=== PATIENT | male | born 1940 | race Caucasian/White ===

== ENCOUNTER 2019-10-15 13:59 | Observation (INO) | payer MEDICARE ==
[2019-10-15] MEDS ORDERED: Ondansetron PF 4 MG/2 ML Vial IVP PRN (15:50)
[2019-10-15] MEDS ORDERED: Dextrose 50% Abboject 50 ML SYRINGE SLOW IVP PRN (15:53)
[2019-10-15] MEDS ORDERED: Dextrose 5% in Water 1,000 ML IV PRN (15:53)
[2019-10-15] MEDS ORDERED: HumaLOG 300 UNITS/3 ML VIAL SC PRN (15:53)
--- NOTE | 2019-10-15 16:37 | PDOC.HHP ---
Hospitalist HPI - History of Present Illness left sided weakness, word finding History of Present Illness: This is a 79 year old male with a past medical history of hypertension, diabetes , who presented to the emergency room due to trouble with word finding and transient weakness in lower extremities. The patient states that yesterday his left leg and his left arm started having parasthesias. As he walked, it got worst and both of his legs became numb. He called his daughter yesterday and she couldn't understand anything he was saying and thought his speech was slurred. His parasthesias lasted until he went to sleep at night and when he woke up this morning it was better. His dysarthria was better today as well . but he has been having difficulty with word finding, so he called his primary care doctor who advised him to go to [facility]. The patient denied headache, changes in vision, hearing, nausea, vomiting, or weakness in his legs. He did not feel dizzy and he did not fall. HE does report history of diabetic neuropathy but states the parasthesias that he had were much worst. Upon arrival to [facility], the patient's systolic blood pressure was 160. He had a CT head which showed no acute disease. EKG showed right bundle branch block. Chest X ray was normal. He had a lactic acid of 3.4. UA was normal. The patient was given 1L normal saline. He does take aspirin 325 mg at home and took his medications this morning. He was transferred for TIA workup. Of note family member has mentioned he was recently diagnosed with Alzheimer's disease. Hospitalist ROS - Review of Systems Constitutional: denies: fever, chills Eyes: denies: pain, vision change ENT: denies: ear discharge Respiratory: denies: cough, dry, shortness of breath Cardiovascular: denies: chest pain, palpitations, orthopnea Gastrointestinal: denies: nausea, vomiting, abdominal pain, diarrhea Genitourinary: denies: dysuria, frequency Musculoskeletal: denies: neck pain, shoulder pain, foot pain Skin: denies: rash, lesions Neurological: denies: weakness, numbness Hospitalist History - Past Medical History Other Medical History: CAD s/p PCI DIabetes type II Hypertension Early Alzheimer's disease - Past Surgical History Past Surgical History: reports: Other Surgical History: Heart stent in 1999 Knee replacement - Family History Other Family History: No medical problems in the family - Social History Smoking Status: Former smoker (Quit in 1999 when his stent was placed. Smoked for 30 year s) Alcohol: reports: None Drugs: reports: none Living Situation: With Family - Exam General Appearance: NAD, awake alert Eye: PERRL, anicteric sclera ENT: normocephalic atraumatic, no oropharyngeal lesions Neck: supple, no JVD Heart: RRR, no murmur, no gallops, no rubs Respiratory: CTAB, no wheezes, no rales, no ronchi Gastrointestinal: soft, non-tender, non-distended, normal bowel sounds Extremities: no cyanosis, no clubbing, no edema Skin: normal turgor, no lesions, no rashes Neurological: cranial nerve grossly intact, normal sensation to touch, no focal deficits, no new deficit Neurological - other findings: left finger to nose dysmetria. 5/5 strength UE and LE Musculoskeletal: normal tone, normal strength, no muscle wasting Psychiatric: normal affect, normal behavior, A&O x 3 Hospitalist Results - EKG Interpretation EKG: right bundle branch block Hospitalist H&P A/P - Plan Plan: This is a 79 year old male with diabetes ,hypertension, CAD s/p stent who presented with transient left sided weakness that progressed to bilateral weakness, transient slurred speech that has resolved, but with persistent word finding difficulties TIA - will continue aspirin - resume statin - check MRI of brain, carotid doppler. Consider neuro consult in the am - check lipid panel in the am - check another troponin Lactic acidosis - will repeat. S/p 1L normal saline Macrocytic anemia - Hb 12.6, will check B12/folate in the am Type II diabetes - insulin sliding scale - hold metformin Hypertension - hold outpatient meds for now Code status: full code. Per patient if terminal illness then DNR/DNi DVT prophylaxis: heparin
[2019-10-15 16:39] VITALS: BMI 29.2
--- NOTE | 2019-10-15 17:24 | PDOC.FMACP ---
Advance Care Planning - Note Participants: patient Summary: Advanced Care Planning was discussed. The diagnosis, prognosis and goals of care were discussed. Appropriate forms and documentation to accomplish the goals of care were discussed. All questions were answered. The Palliative Care Team will be engaged to assist with completion of any outstanding forms that are needed. Discussed that patient wants to be full code unless he has terminal illness. Medical power of attorney general is daughter in law Margo
[2019-10-15] MEDS ORDERED: Atorvastatin Calcium 20 MG TAB PO SCH (21:00)
[2019-10-15] MEDS ORDERED: Nortriptyline HCl 25 MG CAP PO SCH (21:00)
[2019-10-15] MEDS ORDERED: Tamsulosin HCl 0.4 MG CAP PO SCH (21:00)
[2019-10-15] MEDS: Famotidine/PF 20 mg/2ml Vial SLOW IVP SCH (21:11)
[2019-10-15] MEDS: Gabapentin 400 MG CAP PO SCH (21:12)
[2019-10-15] MEDS: Heparin 5,000 UNITS/ML VIAL SC SCH (21:12)
--- NOTE | 2019-10-15 21:26 | ULT ---
ULTRASOUND CAROTID DOPPLER STANDARD: 10/15/19 HISTORY: Transient ischemic attack. COMPARISON: None. FINDINGS: Real time morris scale, color Doppler and spectral analysis of the extracranial carotid and vertebral a rteries was performed. Mild atherosclerotic plaque both carotid bulbs and proximal internal carotid arteries. Antegrade flow to both vertebral arteries. No elevated peak systolic velocities within the internal carotid arteries. IMPRESSION: No hemodynamically significant stenosis. POS: HOME
[2019-10-16] MEDS ORDERED: Levothyroxine Sodium 125 MCG TAB PO SCH ×2 (06:00)
[2019-10-16] MEDS: Gabapentin 400 MG CAP PO SCH ×2 (08:28→15:29)
[2019-10-16] MEDS: Famotidine/PF 20 mg/2ml Vial SLOW IVP SCH (08:28)
[2019-10-16] MEDS: Heparin 5,000 UNITS/ML VIAL SC SCH ×2 (08:29→15:30)
[2019-10-16] MEDS ORDERED: Lisinopril 5 MG TAB PO SCH (09:00)
[2019-10-16] MEDS ORDERED: Atenolol 25 MG TAB PO SCH (09:00)
[2019-10-16] MEDS ORDERED: Aspirin Chewable 81 MG TAB PO SCH (09:00)
--- NOTE | 2019-10-16 10:25 | MRI ---
BRAIN MRI WITHOUT IV CONTRAST: History: Left sided dysmetria, word finding difficulty. Comparison: Brain CT 10-15-2019 FINDINGS: There are some scattered chronic white matter ischemic changes noted bilaterally. Minimal motion serina fact lowers the sensitivity of the study. No focal mass or midline shift. No evidence for acute infar ct. Expected flow voids are present. No acute hemorrhage. IMPRESSION: Mild chronic white matter ischemic change. No mass or hemorrhage. No evidence for acute infarct. Mild sinus mucosal disease. No mass or bleed or other acute process. POS: [facility]
[2019-10-16 12:06] VITALS: BP 129/67; TEMP 98
[2019-10-16 12:51] LABS: #Eosinphils 0.1 thou/uL (0.0-0.7); #Lymphocytes 1.7 thou/uL (1.20-3.40); #Monocytes 0.9 thou/uL (0.11-0.59); %Basophils 0.2 % (0.0-1.0); %Eosinophils 0.9 % (0.0-10.0); %Lymphocytes 19.7 % (21.0-51.0); %Monocytes 10.3 % (0.0-10.0); %Neutrophils 68.9 % (42.0-75.0); Hemoglobin 13.4 g/dL (14.0-18.0); Mean Corpuscular HGB CONC 32.8 g/dL (32.0-36.0); Mean Corpuscular Hemoglobin 30.9 pg (27.0-31.0); Mean Corpuscular Volume 94.3 fL (78.0-98.0); Mean Platelet Volume 7.8 fL (7.4-10.4); Platelet Count 241 thou/uL (130-400); RBC Distribution Width 11.7 % (11.5-14.5); Red Blood Cell (RBC) Count 4.36 mill/uL (4.70-6.10); White Blood Cell (WBC) Count 8.7 thou/uL (4.8-10.8)
[2019-10-16 13:04] LABS: Anion Gap 15 mmol/L (10-20); BUN (Urea Nitrogen) 13 mg/dL (8.4-25.7); Calc. Creatinine Clearance 69 mL/min (70-130); Calcium 9.1 mg/dL (7.8-10.44); Carbon Dioxide 22 mmol/L (23-31); Chloride 105 mmol/L (98-107); Estimated GFR-MDRD 61; Glucose 167 mg/dL (83-110); Potassium 4.8 mmol/L (3.5-5.1); Sodium 137 mmol/L (136-145)
[2019-10-16] MEDS ORDERED: Finasteride 5 MG TAB PO SCH (21:00)
--- NOTE | 2019-10-16 21:07 | DIS ---
DATE OF ADMISSION: 10/15/2019 DATE OF DISCHARGE: 10/16/2019 REASON FOR HOSPITALIZATION: Left-sided weakness and difficulty with word finding. PROCEDURES PERFORMED AND TREATMENTS RENDERED: The patient was admitted to medical unit with telemetry, stroke unit for close management. Please see full history and physical from Dr. Shaw for full details. The patient was admitted on 10/15/2019 with left-sided upper and lower extremity motor deficits and difficulty with word finding. The patient was concerned for TIA workup, low NIH score, dictated that he was not a candidate for tPA on arrival. The patient with past medical history of hypertension, diabetes, hyperlipidemia, and osteoarthritis. The patient had all appropriate workup for TIA, which was found to be overly benign. The patient had a MRI of the brain, please see full workup for details: The patient with mild chronic white matter ischemic changes. No mass or hemorrhage. No evidence of acute infarct: Mild sinusitis. Mucosal disease. No mass or bleed or other acute process. The patient with echocardiogram, please see full report for details. The patient with a preserved ejection fraction of 50% to 55% and impaired relaxation compatible with diastolic dysfunction, though he did not have an acute exacerbation and no heart failure was present. The patient having no shortness of breath. He is breathing well on room air. The patient having no fever. The patient having a normal WBC count and his metabolic workup was benign. The patient had an ultrasound of the carotid arteries, please see full report for details. The patient having no hemodynamically significant stenosis bilaterally. The patient was evaluated by Physical Therapy and Occupational Therapy, who recommended him safe for discharge home with family support and he was found to be independent. The patient recommended safe for discharge on 10/16/2019 after I evaluated him. When I evaluated the patient on 10/16/2019, he has no residual motor deficits and his word-finding and cognition are intact. The patient diagnosed with transient ischemic attack and a stroke regimen was recommended. The patient was recommended safe for discharge with close followup in the outpatient setting. CONDITION ON DISCHARGE: Stable. SPECIFIC INSTRUCTIONS FOR THE PATIENT/FAMILY: 1. The patient is recommended to follow up with primary care physician in the next 5 to 7 days. 2. The patient is recommended to follow up with all other specialists as directed. 3. The patient is recommended to take all medications as directed, the patient recommended to return to acute care hospital immediately if he is unable to take these medications as directed. 4. The patient is recommended to return to acute care hospital immediately if signs or symptoms return, worsen, or any other new symptoms occur. TIME SPENT: Greater than 36 minutes spent coordinating care and discharge process for this patient. Job ID: [id number]
== END 2019-10-16 16:48 | disposition home or self-care (01) ==
LOC: 2SE 14:02
PROVIDERS: ADMIT Internal Medicine; ATTEND Internal Medicine
DX: G45.9 Transient cerebral ischemic attack, unspecified (principal); I10 Essential (primary) hypertension; E11.10 Type 2 diabetes mellitus with ketoacidosis without coma; G30.9 Alzheimer's disease, unspecified; F02.80 Dementia in other diseases classified elsewhere, unspecified severity, without behavioral disturbance, psychotic disturbance, mood disturbance, and anxiety; I25.10 Atherosclerotic heart disease of native coronary artery without angina pectoris; G30.0 Alzheimer's disease with early onset; I45.10 Unspecified right bundle-branch block; D53.9 Nutritional anemia, unspecified; E78.5 Hyperlipidemia, unspecified; M19.90 Unspecified osteoarthritis, unspecified site; Z79.82 Long term (current) use of aspirin; Z79.84 Long term (current) use of oral hypoglycemic drugs; Z79.899 Other long term (current) drug therapy; Z87.891 Personal history of nicotine dependence; Z95.5 Presence of coronary angioplasty implant and graft
CPT/HCPCS: 70551; 80048; 82962 ×2; 85025; 93306; 93880; 96372 ×2; 96374; 96376; 97139 ×4; G0378 ×2; J1644 ×2; 36415; 36416; S0028

== ENCOUNTER 2019-12-13 18:32 | Inpatient (IN) | payer MEDICARE ==
[2019-12-13 18:54] VITALS: BMI 36.2
[2019-12-13 20:42] LABS: Anion Gap 11 mmol/L (10-20); BUN (Urea Nitrogen) 37 mg/dL (8.4-25.7); Calc. Creatinine Clearance 35 mL/min (70-130); Carbon Dioxide 24 mmol/L (23-31); Chloride 108 mmol/L (98-107); Estimated GFR-MDRD 32; Glucose 123 mg/dL (83-110); Sodium 138 mmol/L (136-145)
[2019-12-13] MEDS ORDERED: Calcium Carbonate 500 MG ChewTAB PO PRN (20:47)
[2019-12-13] MEDS ORDERED: Acetaminophen 325 MG TAB PO PRN (20:47)
[2019-12-13] MEDS ORDERED: Ondansetron PF 4 MG/2 ML Vial IVP PRN (20:47)
[2019-12-13] MEDS ORDERED: Ondansetron ODT 4 MG TAB PO PRN (20:47)
[2019-12-13] MEDS ORDERED: Insulin Regular 300 UNITS/3 ML VIAL SC PRN ×2 (20:52)
[2019-12-13] MEDS ORDERED: Dextrose 5% in Water 1,000 ML IV PRN (20:52)
[2019-12-13] MEDS ORDERED: Dextrose 50% Abboject 50 ML SYRINGE SLOW IVP PRN (20:52)
[2019-12-13] MEDS: Heparin 5,000 UNITS/ML VIAL SC SCH (22:01)
[2019-12-13] MEDS: Famotidine 20 MG TAB PO SCH (22:01)
[2019-12-13] MEDS: Senokot S 8.6-50 MG TAB PO SCH (22:01)
[2019-12-13] MEDS: Sodium Chloride 0.45% 1,000 ML IV SCH (22:02)
--- NOTE | 2019-12-14 00:56 | HP ---
The patient was seen and examined on 13 December 2019. Please note that the patient has 2 different medical record numbers. For previous record, please refer to . CHIEF COMPLAINT: Generalized weakness. HISTORY OF PRESENT ILLNESS: The patient is a 79-year-old male with hypertension, diabetes mellitus type 2, and coronary artery disease, followed by Dr. Forman, presented to [facility] from his PCP's office due to abdominal discomfort. The abdominal discomfort has been ongoing for last 1 to 2 days. It is in the suprapubic and the left lower quadrant. It is localized without any radiation. It is moderate in intensity more or less constant. He denies any nausea, vomiting, or diarrhea. He has intermittent constipation. He has been having obstructive urinary symptoms more than 2 to 3 months. He has not seek medical attention. He denies any hematuria or dysuria. He is complaining of frequency and urgency. He also noticed decreased stream of urination. No fever, chills, chest pain, shortness of breath, or palpitations reported. In the emergency room, his workup was consistent with acute kidney injury with creatinine of 2.95 with potassium of 6.3. He was found to have urinary retention requiring Ruiz catheter. He received IV fluids along with calcium, Zofran, insulin with dextrose and morphine. He underwent a CT scan of the abdomen and pelvis that showed right hydronephrosis with some stranding around the right kidney and particularly around the proximal right ureter. He was transferred to this facility for hospital admission. Please note that he was recently diagnosed with UTI and was started on Macrobid by his primary care physician. PAST MEDICAL HISTORY: 1. Hypertension. 2. Diabetes mellitus, type 2. 3. Coronary artery disease. 4. Alzheimer dementia, mild. 5. Hyperlipidemia. PAST SURGICAL HISTORY: Coronary stent placement. ALLERGIES: THE PATIENT DENIES ANY DRUG ALLERGIES. CURRENT HOME MEDICATIONS: We will try to obtain from the family in a.m. The patient is unable to recall all of his medication. SOCIAL HISTORY: The patient currently lives at home alone. He denies any history of smoking, alcohol, or drug use. He makes his own decision with the help of his family. He is full code. FAMILY HISTORY: Negative for premature coronary artery disease. REVIEW OF SYSTEMS: All other review of systems was reviewed and was found negative. PHYSICAL EXAMINATION: VITAL SIGNS: Temperature 97.5, respirations of 20, pulse rate of 63, and blood pressure of 160/66. GENERAL: A 79-year-old male, in no apparent distress. Abdominal pain improved. HEENT: Head, atraumatic and normocephalic. Sclerae anicteric. Moist mucous membranes. No oral lesion. NECK: Supple. No JVD. No carotid bruit. LUNGS: Clear to auscultation bilaterally. No wheezing, rales, or rhonchi. HEART: S1 and S2 present. Regular rate and rhythm. ABDOMEN: Soft, mild tenderness over the suprapubic region. No guarding. No rigidity. No costovertebral angle tenderness. The patient declined rectal examination. EXTREMITIES: No edema or calf tenderness. NEUROLOGIC: Grossly nonfocal. Moves all 4 extremities. PSYCHIATRIC: Alert, awake, and oriented x3. Normal affect. SKIN: Warm and dry. LYMPH NODES: No palpable lymph nodes in the neck. LABORATORY FINDINGS: EKG by my review showed nonspecific ST-T wave changes with right bundle-branch block and first-degree AV block. CT scan of the abdomen and pelvis as discussed above. It also showed diverticulosis. CBC showed WBC 14.5 with hemoglobin 12.4 with 82.8% neutrophil. Creatinine 2.95. Recent hemoglobin A1c 6.2. Lactic acid was normal. Baseline creatinine 1.1. Urinalysis showed 0 to 3 wbc's without any bacteria. Urine culture from 2 weeks ago showed Aerococcus. IMPRESSION: 1. Abdominal pain secondary to obstructive uropathy/urinary retention, requiring Ruiz catheter placement. 2. Acute kidney injury on chronic kidney disease stage 2, most likely secondary to above. 3. Hyponatremia. 4. Hyperkalemia with metabolic acidosis secondary to renal failure. 5. Chronic anemia, suspected due to nutritional deficiency. 6. Recent urinary tract infection, completed Macrobid. 7. Diabetes mellitus, type 2. 8. Hypertension. 9. Hyperlipidemia. 10. Coronary artery disease, status post stent placement. 11. Obesity with a BMI 36.2. PLAN: The patient will be monitored on the telemetry unit due to hyperkalemia. We will continue gentle IV hydration. We will verify home medications and start accordingly. We will hold ELVIRA inhibitor and metformin for now. Consult Urology. Start him on empiric antibiotics. We will hold antiplatelet agent for possible urologic intervention in a.m. We will verify other medications. Walking program. The patient will require 2 to 3 days for stabilization. Job ID: [id number]
[2019-12-14] MEDS: cefTRIAXone\\ROCEPHIN 2 GM in Sodium Chloride 0.9% 100 ML IVPB SCH ×2 (01:17→23:45)
[2019-12-14 05:14] LABS: ALT (SGPT) 17 U/L (8-55); AST (SGOT) 14 U/L (5-34); Albumin 3.2 g/dL (3.4-4.8); Alkaline Phosphatase 70 U/L (40-110); Anion Gap 10 mmol/L (10-20); BUN (Urea Nitrogen) 29 mg/dL (8.4-25.7); Bilirubin, Total Less than 0.2 mg/dL (0.2-1.2); Calc. Creatinine Clearance 45 mL/min (70-130); Calcium 8.1 mg/dL (7.8-10.44); Carbon Dioxide 22 mmol/L (23-31); Chloride 110 mmol/L (98-107); Estimated GFR-MDRD 43; Globulin 2.8 g/dL (2.4-3.5); Glucose 114 mg/dL (83-110); Potassium 4.7 mmol/L (3.5-5.1); Sodium 137 mmol/L (136-145)
[2019-12-14 05:16] LABS: Eosinophils 3 % (0-10); Hypochromia SLIGHT = 6-15 cells (100X) (0-5/hpf); Lymphocytes 16 % (21-51); MDiff Complete? YES; Mean Corpuscular HGB CONC 31.7 g/dL (32.0-36.0); Mean Corpuscular Hemoglobin 29.2 pg (27.0-31.0); Mean Corpuscular Volume 92.3 fL (78.0-98.0); Mean Platelet Volume 7.7 fL (7.4-10.4); Monocytes 13 % (0-10); Neutrophil 68 % (42-75); Platelet Count 219 thou/uL (130-400); Platelet Morphology Comment Appears Adequate; RBC Distribution Width 11.8 % (11.5-14.5); Red Blood Cell (RBC) Count 3.76 mill/uL (4.70-6.10); White Blood Cell (WBC) Count 7.7 thou/uL (4.8-10.8)
[2019-12-14] MEDS: Levothyroxine Sodium 125 MCG TAB PO SCH (05:22)
[2019-12-14] MEDS: Sodium Chloride 0.45% 1,000 ML IV SCH ×4 (05:22→19:56)
[2019-12-14 07:46] LABS: Hemoglobin A1c 6.1 % (4.0-6.0)
--- NOTE | 2019-12-14 08:34 | CON ---
DATE OF CONSULTATION: 12/14/2019 REASON FOR CONSULT: BPH, UTI, acute kidney injury. HISTORY OF PRESENT ILLNESS: Mr. Rene is a 79-year-old male with history of diabetes, hypertension, coronary artery disease, mild Alzheimer's, who presented from [facility] via his PCPs office due to abdominal discomfort. The patient was subsequently transitioned to [facility] for higher level of care. He is a poor historian, I did review [facility], [facility], Psychiatric records as he states that he was previously followed by Dr. Shah. Relates that he is followed by different primary care in [place], name which he does not recall. He relates history of intermittent constipation, has had decreased urinary caliber obstructive urinary symptoms for the last few months. Of note, he does have a history of BPH, per PCP records, has been on finasteride, Flomax. He denies significant incontinence; however, has had significant nocturia 6 times per patient. Denies prior history of urinary retention. He states that with an indwelling Ruiz catheter placed, there was a significant amount of postvoid residual; however, the amount is unknown to the patient nor is a record of PVR. CT of the abdomen and pelvis in [place] [facility] demonstrated mild right hydronephrosis. He is currently comfortable, denies recurrence of abdominal discomfort, prior history of kidney stones, or gross hematuria, nor prior history of UTI. His [facility] records review that he was recently diagnosed with UTI and was treated with Macrobid by primary care physician. PAST MEDICAL HISTORY: Includes hypertension, diabetes, coronary artery disease, Alzheimer's, mild hyperlipidemia. PAST SURGICAL HISTORY: Includes left total knee replacement by Dr. Henry and coronary artery stent placement, followed by Dr. Forman. SOCIAL HISTORY: Lives at home. He is a . Denies illicit drug use, tobacco abuse. He is full code. FAMILY HISTORY: Positive for coronary artery disease. REVIEW OF SYSTEMS: Ten-point review of systems as above, otherwise noncontributory. PHYSICAL EXAMINATION: VITAL SIGNS: His vital signs are stable. He is afebrile. Temperature 97, heart rate 59, respiratory rate 16, oxygen saturation 98, blood pressure 105/51. I's and O's 1800 in, 500 out. GENERAL: The patient appears to be in no acute distress. Alert and oriented x3. HEENT: Grossly unremarkable. HEART: Regular rate. LUNGS: Clear. ABDOMEN: Soft, nontender, nondistended. No suprapubic tenderness, no CVA tenderness. EXTREMITIES: No cyanosis, clubbing, or edema. NEUROLOGIC: No gross focal deficits. PSYCHIATRIC: Appears to be appropriate. Normal affect. SKIN: Warm to touch with no evidence of lesions. No lymph nodes. No significant lymphadenopathy. : Uncircumcised, 16-Micronesian Ruiz catheter demonstrating concentrated yellow urine with some sediment. Testes are descended with no evidence of intratesticular mass. Digital rectal exam demonstrates prostate greater than 50 g with no discrete nodularity. PERTINENT LABS AND IMAGING STUDIES: I did review his Psychiatric records demonstrating in 2016, his hemoglobin A1c is 6.0. Creatinine baseline in 2016 is 0.9. He is admitted with a creatinine of 2.05 with fluids, creatinine decreased to 1.57. Blood sugars have been running in 170s and 180s. Urine culture recently: Aerococcus DIAGNOSTIC STUDIES: CT of the abdomen and pelvis, noncontrast, which I reviewed myself dated December 13, 2019: Several exophytic cyst bilateral kidneys, largest in the left kidney measuring 3 cm. There is mild right hydronephrosis with some stranding around the kidney in the proximal ureter. Per my review, there is some prominence of the ureter down to the level of L4. CT of the pelvis demonstrates Ruiz catheter in the bladder, with no significant bladder distention or bladder mass of concern. Prostate is moderately enlarged. Per my review, CT prostate volume 4.5 x 4.4 x 5.3, estimated to be 58 g with no significant intravesical median lobe. MRI of the brain, September 2019, mild chronic white matter ischemia. No mass. Ultrasound of the carotid, September 2019, demonstrates no significant carotid stenosis. IMPRESSION: Mr. Rene is a 79-year-old male with past medical histories, 1. Diabetes. 2. Hypertension. 3. Coronary artery disease, followed by Dr. Forman. 4. Mild Alzheimer's. 5. History of benign prostatic hypertrophy. Presents with UTI, unclear regarding level of postvoid residual, UTI. Acute kidney injury, improving with indwelling Ruiz catheter and fluids. Recommend continue his dual medical therapy with Flomax, Proscar. continue to monitor his BMP, renal function. Avoid nephrotoxins. He is currently on Rocephin. I do not have records of his urine culture from his primary care; however, Macrobid is contraindicated due to acute kidney injury. will recheck UA, C and S. We will follow cultures. Pending his recovery of renal function, we will consider voiding trial versus discharge with indwelling Ruiz catheter. He will require outpatient workup with cystoscopy, volume study. addendum: Informed by hospitalist previous urine culture consistent with Aerococcus Job ID: [id number] [facility]
[2019-12-14] MEDS ORDERED: Tamsulosin HCl 0.4 MG CAP PO SCH (09:00)
[2019-12-14] MEDS: Atenolol 25 MG TAB PO SCH (09:15)
[2019-12-14] MEDS: Heparin 5,000 UNITS/ML VIAL SC SCH ×2 (09:15→20:13)
[2019-12-14] MEDS: Polyethylene Glycol 3350 17 GM Packet PO SCH (09:15)
[2019-12-14] MEDS: Finasteride 5 MG TAB PO SCH (09:15)
[2019-12-14] MEDS: Gabapentin 400 MG CAP PO SCH ×3 (09:15→20:15)
[2019-12-14] MEDS: Senokot S 8.6-50 MG TAB PO SCH ×2 (09:15→20:15)
[2019-12-14 09:48] LABS: Bilirubin Negative (Negative); Blood, Urine 2+ (Negative); Clarity Turbid (Clear); Glucose, Urine (Dipstick) Normal (Negative); Leukocyte 500 Leu/uL (Negative); Nitrite Negative (Negative); Protein, Urine (Dipstick) 50 mg/dL (Neg-Trace); RBC/HPF Greater than 50 HPF (0-3); Squamous Epithelial 0-3 HPF (0-3); Urobilinogen Normal mg/dL (Less than 2); WBC/HPF Greater than 50 HPF (0-3)
[2019-12-14 09:49] LABS: Bacteria/HPF 1+ HPF (None Seen)
--- NOTE | 2019-12-14 18:04 | PDOC.HOSPP ---
- Subjective Encounter Date: 12/14/19 Encounter Time: 10:00 Subjective: Patient seen and examined for MARIYA. No N/V/Abd pain. No new complaints. No overnight events - Objective Vital Signs & Weight: Vital Signs (12 hours) Temp Pulse Resp BP Pulse Ox 12/14/19 15:45 97.9 F 66 16 130/80 98 12/14/19 11:33 98.0 F 66 18 135/61 97 12/14/19 07:32 99.1 F 55 L 18 111/55 L 98 12/14/19 06:35 98 Weight Weight 179 lb 8 oz I&O: 12/13/19 12/14/19 12/15/19 06:59 06:59 06:59 Intake Total 1800 Output Total 550 Balance 1250 Result Diagrams: 12/15/19 03:47 12/15/19 03:47 Additional Labs: Accuchecks 12/14/19 12/14/19 12/14/19 15:45 10:45 05:47 POC Glucose 160 H 148 H 118 H 12/13/19 20:45 POC Glucose 121 H Radiology Reviewed by me: Yes (CT abd - reviewed) EKG Reviewed by me: Yes (Tele SR) Hospitalist ROS - Review of Systems Respiratory: denies: cough, dry, shortness of breath, hemoptysis, SOB with excertion, pleuritic pain, sputum, wheezing, other Cardiovascular: denies: chest pain, palpitations, orthopnea, paroxysmal noc. dyspnea, edema, light headedness, other Gastrointestinal: denies: nausea, vomiting, abdominal pain, diarrhea, constipation, melena, hematochezia, other - Medication Medications: Active Medications Generic Name Dose Route Start Last Admin Trade Name Freq PRN Reason Stop Dose Admin Atenolol 25 mg 12/14/19 09:00 12/14/19 09:15 Tenormin PO 25 mg DAILY SARITA Administration Famotidine 20 mg 12/13/19 21:00 12/13/19 22:01 Pepcid PO Not Given 2100 SARITA Finasteride 5 mg 12/14/19 09:00 12/14/19 09:15 Proscar PO 5 mg DAILY SARITA Administration Gabapentin 400 mg 12/14/19 09:00 12/14/19 17:09 Neurontin PO Not Given TID SARITA Heparin Sodium (Porcine) 5,000 units 12/13/19 21:00 12/14/19 09:15 Heparin SC 5,000 units BID SARITA Administration Sodium Chloride 1,000 mls @ 150 mls/hr 12/13/19 21:00 12/14/19 17:10 1/2 Normal Saline IV Not Given .[id number] SARITA Ceftriaxone Sodium 2 gm/ 100 mls @ 200 mls/hr 12/13/19 23:59 12/14/19 01:17 Sodium Chloride IVPB 100 mls Q24HR SARITA Administration Levothyroxine Sodium 125 mcg 12/14/19 06:00 12/14/19 05:22 Synthroid PO 125 mcg 0600 SARITA Administration Polyethylene Glycol 17 gm 12/14/19 09:00 12/14/19 09:15 Miralax PO 17 gm DAILY SARITA Administration Senna/Docusate Sodium 2 tab 12/13/19 21:00 12/14/19 09:15 Senokot S PO 2 tab BID SARITA Administration Tamsulosin HCl 0.4 mg 12/14/19 09:00 12/14/19 09:15 Flomax PO 0.4 mg DAILY SARITA Administration - Exam General Appearance: NAD Neck: supple, symmetric, no JVD, no thyromegaly Heart: RRR, no gallops, no rubs, normal peripheral pulses Respiratory: no wheezes, no rales, no ronchi, normal chest expansion Gastrointestinal: soft, non-tender, non-distended, normal bowel sounds, no guarding, no rigidity Extremities: no cyanosis, no clubbing, no edema Extremities - other findings: no calf tenderness Neurological: no new deficit Psychiatric: normal affect, A&O x 3 Hosp A/P - Plan DVT proph w/SCDs 1. Abdominal pain secondary to obstructive uropathy/urinary retention s/p Ruiz catheter placement. 2. MARIYA on CKD 2. 3. Hyponatremia. 4. Hyperkalemia with metabolic acidosis secondary to renal failure. 5. Chronic anemia, suspected due to nutritional deficiency. 6. Recent urinary tract infection, completed Macrobid. 7. Diabetes mellitus, type 2. 8. Hypertension. 9. Hyperlipidemia. 10. Coronary artery disease, status post stent placement. 11. Obesity with a BMI 36.2. 12. Physical deconditioning PLAN: Cont IVF Urology input appreciated Resume other home meds Renal function improving Transfer to medical Cont Ruiz Cont IV Ceftriaxone Consult CM for walker. Patient will benefit from a walker due to gait instability.
[2019-12-14] MEDS: Famotidine 20 MG TAB PO SCH (20:19)
[2019-12-15] MEDS: Sodium Chloride 0.45% 1,000 ML IV SCH ×2 (03:46→12:23)
[2019-12-15 04:10] LABS: #Eosinphils 0.2 thou/uL (0.0-0.7); #Lymphocytes 1.6 thou/uL (1.20-3.40); #Monocytes 1.1 thou/uL (0.11-0.59); #Neutrophils 5.5 thou/uL (1.40-6.50); %Basophils 0.3 % (0.0-1.0); %Eosinophils 2.4 % (0.0-10.0); %Lymphocytes 19.2 % (21.0-51.0); %Monocytes 12.6 % (0.0-10.0); %Neutrophils 65.5 % (42.0-75.0); Hemoglobin 10.2 g/dL (14.0-18.0); Mean Corpuscular HGB CONC 33.2 g/dL (32.0-36.0); Mean Corpuscular Hemoglobin 30.5 pg (27.0-31.0); Mean Corpuscular Volume 91.9 fL (78.0-98.0); Mean Platelet Volume 7.4 fL (7.4-10.4); Platelet Count 200 thou/uL (130-400); RBC Distribution Width 11.6 % (11.5-14.5); Red Blood Cell (RBC) Count 3.34 mill/uL (4.70-6.10); White Blood Cell (WBC) Count 8.3 thou/uL (4.8-10.8)
[2019-12-15 04:26] LABS: ALT (SGPT) 13 U/L (8-55); AST (SGOT) 13 U/L (5-34); Albumin 2.9 g/dL (3.4-4.8); Alkaline Phosphatase 60 U/L (40-110); Anion Gap 12 mmol/L (10-20); BUN (Urea Nitrogen) 16 mg/dL (8.4-25.7); Bilirubin, Total 0.3 mg/dL (0.2-1.2); Calc. Creatinine Clearance 63 mL/min (70-130); Calcium 7.4 mg/dL (7.8-10.44); Carbon Dioxide 21 mmol/L (23-31); Chloride 108 mmol/L (98-107); Estimated GFR-MDRD 64; Globulin 2.6 g/dL (2.4-3.5); Glucose 89 mg/dL (83-110); Potassium 4.5 mmol/L (3.5-5.1); Protein, Total 5.5 g/dL (5.8-8.1); Sodium 136 mmol/L (136-145)
[2019-12-15] MEDS: Levothyroxine Sodium 125 MCG TAB PO SCH (06:17)
--- NOTE | 2019-12-15 07:52 | PRG ---
DATE OF SERVICE: 12/15/2019 SUBJECTIVE: The patient is feeling well, no new complaints. Denies nausea, vomiting, or chills. OBJECTIVE: VITAL SIGNS: Stable. No fever. 98, 61, 16, 96, 112/55. I's and O 's, 2945 in and 2375 out. He is positive 570 mL. LABORATORY DATA: Urine culture on presentation demonstrates Aerococcus UTI. Repeat urine culture, preliminary negative. IMPRESSION AND PLAN: 1. A 79-year-old male admitted for Aerococcus urinary tract infection. 2. BPH with urinary retention, presenting PVR unknown. Acute kidney injury, resolved. Hyponatremia. 3. Diabetes. 4. Coronary artery disease, status post stent, on Plavix. Continue IV Rocephin. Anticipate the patient will need to be discharged with Omnicef for 2 weeks. ER records now available to take reviewed initial postvoid residual 1200 cc, therefore I do not recommend voiding trial at this time due to over distention injury. Continue Proscar, Flomax increased to twice daily. Repeat urine culture negative. Acute kidney injury resolved as he presented with creatinine of 2.05, morning creatinine 1.1 per patient, due to social issues desires to be discharged tomorrow which is reasonable anticipate patient will be discharged tomorrow with indwelling Ruiz catheter to leg bag. Do follow-up appointment with me in chart December 22 for voiding trial. Informed patient that he will require cystoscopy volume study at a later date to discuss options of surgical intervention Job ID: [id number] MTDD
[2019-12-15] MEDS: Tamsulosin HCl 0.4 MG CAP PO SCH ×2 (08:35→21:16)
[2019-12-15] MEDS: Atenolol 25 MG TAB PO SCH (08:35)
[2019-12-15] MEDS: Aspirin Chewable 81 MG TAB PO SCH (08:35)
[2019-12-15] MEDS: Finasteride 5 MG TAB PO SCH (08:35)
[2019-12-15] MEDS: Clopidogrel Bisulfate 75 MG TAB PO SCH (08:35)
[2019-12-15] MEDS: Senokot S 8.6-50 MG TAB PO SCH ×2 (08:36→21:17)
[2019-12-15] MEDS: Polyethylene Glycol 3350 17 GM Packet PO SCH (08:36)
[2019-12-15] MEDS: Heparin 5,000 UNITS/ML VIAL SC SCH ×2 (08:36→21:15)
[2019-12-15] MEDS: Gabapentin 400 MG CAP PO SCH ×3 (08:36→21:15)
[2019-12-15] MEDS: Famotidine 20 MG TAB PO SCH (21:15)
--- NOTE | 2019-12-15 23:16 | PDOC.HOSPP ---
- Subjective Encounter Date: 12/15/19 Encounter Time: 10:30 Subjective: Patient seen and examined for MARIYA/urinary retention. No new complaints. No overnight events - Objective Vital Signs & Weight: Vital Signs (12 hours) Temp Pulse Resp BP Pulse Ox 12/15/19 20:00 97.7 F 70 16 153/66 H 96 Weight Weight 179 lb 8 oz I&O: 12/14/19 12/15/19 12/16/19 06:59 06:59 06:59 Intake Total 1800 2945 240 Output Total 550 2375 Balance 1250 570 240 Result Diagrams: 12/15/19 03:47 12/15/19 03:47 Additional Labs: Accuchecks 12/15/19 12/15/19 12/15/19 21:27 16:55 11:53 POC Glucose 132 H 119 H 154 H Radiology Reviewed by me: Yes (CT abd reviewed) Hospitalist ROS - Review of Systems Respiratory: denies: cough, dry, shortness of breath, hemoptysis, SOB with excertion, pleuritic pain, sputum, wheezing, other Cardiovascular: denies: chest pain, palpitations, orthopnea, paroxysmal noc. dyspnea, edema, light headedness, other - Medication Medications: Active Medications Generic Name Dose Route Start Last Admin Trade Name Freq PRN Reason Stop Dose Admin Acetaminophen 650 mg 12/13/19 20:47 12/15/19 00:27 Tylenol PO 650 mg Q4H PRN Administration Headache/Fever/Mild Pain (1-3) Aspirin 81 mg 12/15/19 09:00 12/15/19 08:35 Aspirin Chewable PO 81 mg DAILY SARITA Administration Atenolol 25 mg 12/14/19 09:00 12/15/19 08:35 Tenormin PO 25 mg DAILY SARITA Administration Clopidogrel Bisulfate 75 mg 12/15/19 09:00 12/15/19 08:35 Plavix PO 75 mg DAILY SARITA Administration Famotidine 20 mg 12/13/19 21:00 12/15/19 21:15 Pepcid PO 20 mg 2100 SARITA Administration Finasteride 5 mg 12/14/19 09:00 12/15/19 08:35 Proscar PO 5 mg DAILY SARITA Administration Gabapentin 400 mg 12/14/19 09:00 12/15/19 21:15 Neurontin PO 400 mg TID SARITA Administration Heparin Sodium (Porcine) 5,000 units 12/13/19 21:00 12/15/19 21:15 Heparin SC 5,000 units BID SARITA Administration Ceftriaxone Sodium 2 gm/ 100 mls @ 200 mls/hr 12/13/19 23:59 12/14/19 23:45 Sodium Chloride IVPB 100 mls Q24HR SARITA Administration Sodium Chloride 1,000 mls @ 75 mls/hr 12/15/19 09:16 12/15/19 12:23 1/2 Normal Saline IV 1,000 mls .[id number] SARITA Administration Levothyroxine Sodium 125 mcg 12/14/19 06:00 12/15/19 06:17 Synthroid PO 125 mcg 0600 SARITA Administration Polyethylene Glycol 17 gm 12/14/19 09:00 12/15/19 08:36 Miralax PO 17 gm DAILY SARITA Administration Senna/Docusate Sodium 2 tab 12/13/19 21:00 12/15/19 21:17 Senokot S PO 2 tab BID SARITA Administration Sertraline HCl 50 mg 12/14/19 21:00 12/15/19 21:15 Zoloft PO 50 mg HS SARITA Administration Tamsulosin HCl 0.4 mg 12/15/19 09:00 12/15/19 21:16 Flomax PO 0.4 mg BID SARITA Administration - Exam General Appearance: NAD Neck: supple, no JVD Heart: no murmur, no rubs Respiratory: no wheezes, no rales, no ronchi Gastrointestinal: non-tender, non-distended, normal bowel sounds Extremities: no edema Hosp A/P - Plan DVT proph w/SCDs 1. Abdominal pain secondary to obstructive uropathy/urinary retention s/p Ruiz catheter placement. 2. MARIYA on CKD 2. 3. Hyponatremia. 4. Hyperkalemia with metabolic acidosis secondary to renal failure. 5. Chronic anemia, suspected due to nutritional deficiency. 6. Recent urinary tract infection, completed Macrobid. 7. Diabetes mellitus, type 2. 8. Hypertension. 9. Hyperlipidemia. 10. Coronary artery disease, status post stent placement. 11. Obesity with a BMI 36.2. 12. Physical deconditioning PLAN: Cont IVF - reduce rate to 75 ml/hr Cont Flomax - dose increased Cont Ruiz Cont IV Ceftriaxone Renal function improving Cont other meds as above Consult CM for walker. Patient will benefit from a walker due to gait instability.
[2019-12-16] MEDS: Sodium Chloride 0.45% 1,000 ML IV SCH (00:20)
[2019-12-16] MEDS: cefTRIAXone\\ROCEPHIN 2 GM in Sodium Chloride 0.9% 100 ML IVPB SCH (00:21)
[2019-12-16 05:19] LABS: Anion Gap 11 mmol/L (10-20); BUN (Urea Nitrogen) 10 mg/dL (8.4-25.7); Calc. Creatinine Clearance 67 mL/min (70-130); Calcium 7.7 mg/dL (7.8-10.44); Carbon Dioxide 24 mmol/L (23-31); Chloride 107 mmol/L (98-107); Estimated GFR-MDRD 69; Glucose 106 mg/dL (83-110); Potassium 4.5 mmol/L (3.5-5.1); Sodium 137 mmol/L (136-145)
[2019-12-16 05:33] LABS: Eosinophils 1 % (0-10); Hypochromia SLIGHT = 6-15 cells (100X) (0-5/hpf); Lymphocytes 6 % (21-51); MDiff Complete? YES; Mean Corpuscular HGB CONC 34.2 g/dL (32.0-36.0); Mean Corpuscular Hemoglobin 31.4 pg (27.0-31.0); Mean Corpuscular Volume 91.9 fL (78.0-98.0); Mean Platelet Volume 7.3 fL (7.4-10.4); Monocytes 10 % (0-10); Neutrophil 83 % (42-75); Platelet Count 213 thou/uL (130-400); Platelet Morphology Comment Appears Adequate; RBC Distribution Width 11.5 % (11.5-14.5); White Blood Cell (WBC) Count 6.6 thou/uL (4.8-10.8)
[2019-12-16] MEDS: Levothyroxine Sodium 125 MCG TAB PO SCH (05:51)
--- NOTE | 2019-12-16 07:52 | PRG ---
DATE OF SERVICE: 12/16/2019 SUBJECTIVE: The patient without complaints, doing well. Vital signs are stable. Afebrile. I's and O's of clear yellow urine. OBJECTIVE: GENERAL: The patient is in no acute distress. ABDOMEN: Soft, nontender, nondistended. Ruiz catheter draining clear yellow urine. PERTINENT LABS: White count 6, hemoglobin 11, platelets 213. BMP profile is unremarkable with creatinine of 1.04. Admitting creatinine of 2.05. November 29 urine culture demonstrates Aerococcus. Repeat urine culture demonstrates no growth. IMPRESSION AND PLAN: Mr. Rene is a 79-year-old male with history of coronary artery disease status post stent on Plavix, followed by Dr. Forman. 1. History of diabetes. 2. History of BPH, urinary retention. Presenting PVR of 1200 mL per ER records with acute kidney injury, and mild right hydronephrosis. RECOMMENDATIONS: The patient can be discharged with family assist, as he states that he is staying with his [id number], he will be discharged with indwelling Ruiz catheter due to significant PVR to allow bladder rest. Please discharge the patient with Omnicef 300 mg one p.o. b.i.d. for 10 days, Flomax 0.4 mg one p.o. b.i.d., continue Proscar 5 mg one p.o. daily. I informed him regarding discharging with indwelling Ruiz catheter to gravity, options of leg bag reviewed which he states that he would prefer gravity bag He will return to my office next , December 22 for a voiding trial and will undergo workup with cysto, volume study for intervention of BPH. Job ID: [id number] MTDD
[2019-12-16 09:10] VITALS: BP 132/64; TEMP 97.8
[2019-12-16] MEDS: Finasteride 5 MG TAB PO SCH (10:02)
[2019-12-16] MEDS: Aspirin Chewable 81 MG TAB PO SCH (10:02)
[2019-12-16] MEDS: Atenolol 25 MG TAB PO SCH (10:02)
[2019-12-16] MEDS: Gabapentin 400 MG CAP PO SCH (10:02)
[2019-12-16] MEDS: Tamsulosin HCl 0.4 MG CAP PO SCH (10:03)
[2019-12-16] MEDS: Senokot S 8.6-50 MG TAB PO SCH (10:03)
[2019-12-16] MEDS: Clopidogrel Bisulfate 75 MG TAB PO SCH (10:03)
[2019-12-16] MEDS: Polyethylene Glycol 3350 17 GM Packet PO SCH (10:04)
--- NOTE | 2019-12-16 14:23 | DIS ---
DATE OF ADMISSION: 12/13/2019 DATE OF DISCHARGE: 12/16/2019 DISCHARGE DISPOSITION: Home. FOLLOWUP: Follow up with primary care physician, Dr. Vallecillo in 1 week. Follow up with Dr. Cash on 23 December 2019 at 1:15 p.m. The patient was seen and examined on the day of discharge. Denies any new complaints. No chest pain, shortness of breath, palpitations reported. SIGNIFICANT LABORATORY DATA: Urine cultures negative. WBC on admission 14.5, at discharge 6.6. Creatinine at discharge is 1.04, on admission it was 2.95. CT scan of the abdomen and pelvis showed right hydronephrosis with some stranding around the right kidney and particularly proximal right ureter. BRIEF HOSPITAL COURSE: The patient is a 79-year-old male with hypertension, hyperlipidemia, diabetes mellitus type 2, and coronary artery disease, presented to the hospital with generalized weakness along with abdominal discomfort. He was found to have acute kidney injury secondary to urinary retention. His creatinine on admission was 2.95 with potassium of 6.3. His initial postvoid residual was 1200 mL prior to Ruiz catheter insertion. His renal function improved with IV hydration. The patient was evaluated by Urology, Dr. Cash. Flomax dose was increased. He will continue finasteride. He was started on IV ceftriaxone that has been transitioned to oral Omnicef. FINAL DIAGNOSES: 1. Acute kidney injury on chronic kidney disease stage 2 secondary to urinary retention due to obstructive uropathy. 2. Abdominal discomfort secondary to above. 3. Sepsis secondary to Aerococcus urinary tract infection, present on admission. Patient failed outpatient therapy. 4. Hyperkalemia with metabolic acidosis secondary to renal failure, improved. 5. Chronic anemia due to nutritional deficiency. 6. Diabetes mellitus, type 2. 7. Hypertension. 8. Hyperlipidemia. 9. Coronary artery disease, status post stent placement. 10. Obesity with a BMI of 36.2. 11. Physical deconditioning. 12. Significant labs, hemoglobin A1c 6.1. 13. Potassium at discharge is 4.5. 14. Repeat basic metabolic profile after 1 week is recommended. Primary care physician advised to follow. Job ID: [id number]
== END 2019-12-16 11:15 | disposition home health service (06) | DRG 872 ==
LOC: 2NO 18:32 → MERGE 18:32 → ONC 12-14 15:15
PROVIDERS: ADMIT Internal Medicine; ATTEND Internal Medicine
DX: A41.89 Other specified sepsis (principal); N13.6 Pyonephrosis; N17.9 Acute kidney failure, unspecified; E87.2 Acidosis; E87.1 Hypo-osmolality and hyponatremia; E78.5 Hyperlipidemia, unspecified; I25.10 Atherosclerotic heart disease of native coronary artery without angina pectoris; R33.9 Retention of urine, unspecified; R53.81 Other malaise; N18.2 Chronic kidney disease, stage 2 (mild); I12.9 Hypertensive chronic kidney disease with stage 1 through stage 4 chronic kidney disease, or unspecified chronic kidney disease; G30.9 Alzheimer's disease, unspecified; N40.1 Benign prostatic hyperplasia with lower urinary tract symptoms; F02.80 Dementia in other diseases classified elsewhere, unspecified severity, without behavioral disturbance, psychotic disturbance, mood disturbance, and anxiety; E11.22 Type 2 diabetes mellitus with diabetic chronic kidney disease; Z96.652 Presence of left artificial knee joint; D63.1 Anemia in chronic kidney disease; E87.5 Hyperkalemia; E66.9 Obesity, unspecified; Z68.36 Body mass index [BMI] 36.0-36.9, adult; Z79.4 Long term (current) use of insulin; Z95.5 Presence of coronary angioplasty implant and graft
CPT/HCPCS: 36415; 36416; 80048; 80053; 80061; 81001; 82607; 83036; 84439; 84443; 85025; 87086; J0696; J1644; J3490

== ENCOUNTER 2020-01-28 05:20 | Outpatient (CLI) | payer MEDICARE, OTHER ==
--- NOTE | 2020-01-28 09:37 | RAD ---
Chest 2 views HISTORY: Preop. COMPARISON: 10/15/2019. FINDINGS: Cardiac silhouette is unremarkable. Pulmonary vasculature upper limits of normal. Mediastinum is midline with aortic calcification. Widespread mild interstitial thickening is similar in appearance to the prior study. No lobar consolidation, pneumothorax, or pleural fluid. Prominent degenerative changes of the thoracic spine lateral view. IMPRESSION : Atherosclerosis. Chronic-type findings are stable.
[2020-01-28 11:23] LABS: Prothrombin Time 12.8 sec (12.0-14.7)
[2020-01-28 11:24] LABS: PTT 34.1 sec (22.9-36.1)
[2020-01-28 11:28] LABS: Hemoglobin 11.1 g/dL (14.0-18.0); Mean Corpuscular HGB CONC 32.3 g/dL (32.0-36.0); Mean Corpuscular Hemoglobin 30.6 pg (27.0-31.0); Mean Corpuscular Volume 94.8 fL (78.0-98.0); Mean Platelet Volume 7.5 fL (7.4-10.4); Platelet Count 271 thou/uL (130-400); RBC Distribution Width 12.4 % (11.5-14.5); Red Blood Cell (RBC) Count 3.64 mill/uL (4.70-6.10); White Blood Cell (WBC) Count 9.1 thou/uL (4.8-10.8)
[2020-01-28 12:14] LABS: Anion Gap 17 mmol/L (10-20); BUN (Urea Nitrogen) 24 mg/dL (8.4-25.7); Calc. Creatinine Clearance 0 mL/min (70-130); Calcium 9.8 mg/dL (7.8-10.44); Carbon Dioxide 23 mmol/L (23-31); Chloride 107 mmol/L (98-107); Estimated GFR-MDRD 63; Glucose 73 mg/dL (83-110); Potassium 4.8 mmol/L (3.5-5.1); Sodium 142 mmol/L (136-145)
[2020-01-28 17:20] LABS: SARS-CoV-2 MS2 Positive; SARS-CoV-2 N Gene Negative; SARS-CoV-2 S Gene Negative; SARS-CoV-2 by NAA Not Detected (NotDetected); SARS-CoV-2 orf1ab Negative
== END 2020-01-28 05:21 | disposition home or self-care (01) ==
LOC: LABBT 05:20 → SCSRAD 05:21
PROVIDERS: ATTEND Urology
DX: Z01.818 Encounter for other preprocedural examination (principal); Z11.59 Encounter for screening for other viral diseases; N40.1 Benign prostatic hyperplasia with lower urinary tract symptoms; E11.40 Type 2 diabetes mellitus with diabetic neuropathy, unspecified; I10 Essential (primary) hypertension; I25.10 Atherosclerotic heart disease of native coronary artery without angina pectoris; R33.8 Other retention of urine; N39.0 Urinary tract infection, site not specified
CPT/HCPCS: 71046; 80048; 85027; 85610; 85730; 87635; 93005; 93010; U0003

== ENCOUNTER 2020-02-02 07:35 | Day surgery (SDC) | payer MEDICARE ==
[2020-02-01 11:33] VITALS: BMI 26.2
[2020-02-02] MEDS ORDERED: Sodium Chloride 0.9% 0 ML ONE (08:45)
[2020-02-02] MEDS ORDERED: cefTRIAXone\\ROCEPHIN 2 GM VIAL ONE (08:45)
[2020-02-02] MEDS ORDERED: Levofloxacin 500 mg/D5W 100 ml Premix Bag ONE (09:38)
[2020-02-02] MEDS ORDERED: Fentanyl 100 MCG/2 ML VIAL ONE (10:21)
[2020-02-02] MEDS ORDERED: Midazolam HCl 2 mg/2 ml Vial ONE (10:21)
[2020-02-02] MEDS ORDERED: PROPOFOL 200 MG/20 ML VIAL ONE (10:37)
[2020-02-02] MEDS ORDERED: EPHEDRINE 25 MG/5 ML SYRINGE ONE (10:37)
[2020-02-02] MEDS ORDERED: Lidocaine 1% PF 5 ML VIAL ONE (10:37)
[2020-02-02] MEDS ORDERED: PHENYLEPHRINE-NS 100 MCG/ML 10 ML SYRINGE ONE (10:37)
[2020-02-02] MEDS ORDERED: Glycopyrrolate 0.2 MG/ML 5 ML SYRINGE ONE (10:37)
--- NOTE | 2020-02-02 11:50 | ULT ---
EXAM: US Portable PROVIDED CLINICAL HISTORY: Placement of suprapubic catheter by Dr. Cash. COMPARISON: None FINDINGS/IMPRESSION: Limited sonographic evaluation of the urinary bladder was provided for Dr. Cash. 3 images of t he urinary bladder are provided with mild distention of the urinary bladder. Correlation with intraoperative findings is recommended.
[2020-02-02] MEDS ORDERED: Phenazopyridine HCl 97.5 MG TABLET ONE (11:53)
--- NOTE | 2020-02-02 13:17 | OP ---
DATE OF PROCEDURE: 02/02/2020 PREOPERATIVE DIAGNOSES: A 80-year-old male with history of benign prostatic hyperplasia, urinary retention, PVR of 1200 mL resulting in mild hydronephrosis. POSTOPERATIVE DIAGNOSES: A 80-year-old male with history of benign prostatic hyperplasia, urinary retention, PVR of 1200 mL resulting in mild hydronephrosis. PROCEDURES PERFORMED: Cystoscopy, suprapubic tube placement with intraoperative ultrasound of the bladder, 18-Chadian Grayling 10 mL, UroLift implant x6, ANESTHESIA: LMA. COMPLICATIONS: None apparent. DISPOSITION: To recovery room in stable condition. INDICATIONS FOR PROCEDURE AND HISTORY: Mr. Rene is a pleasant 80-year- old male with history of hypertension, diabetes, who was seen as an inpatient consultation as he presented with urinary retention and Enterococcus UTI. His postvoid residual was over 1200 mL, resulting in mild dilatation of the kidney. He underwent cystoscopy, volume study, urodynamics and presents today for suprapubic tube placement, UroLift. We did discuss options of TURP, the patient has been fully informed that he may require more definitive treatment such as resection of the prostate. As he has significant postvoid residual, concomitant suprapubic tube is advised to monitor his postvoid residual. Risks and complications of the procedure were discussed with him in detail including, but not limited to, bleeding, pain, infection, injury to adjacent areas, urosepsis, bladder, bowel injury, chronic pain, hematuria, clot retention. Alternatives of the procedure including observation were discussed with him in detail. Questions encouraged and answered and desired to proceed without reservation. Patient and daughter desires trial of UroLift. DESCRIPTION OF PROCEDURE: After an informed consent was signed, the patient was taken to the operating room, placed in a dorsal lithotomy position with the genital area prepped and draped in the usual surgical sterile fashion. Bilateral VADIM hose, SCDs, and broad-spectrum antibiotics were provided. A 21-Chadian cystoscope was utilized to perform a cystoscopy, which demonstrated no evidence of urethral stricture. Prostatic urethra was entered demonstrating bilobar hyperplasia with no median lobe. Bladder was entered, which demonstrated large capacity bladder as previous with trabeculation consistent with chronic outlet obstruction. At this time, the bladder was distended to the level of the umbilicus. We did perform an intraoperative ultrasound, which demonstrated nice distended bladder with no bowel contents anterior to the bladder. With the bladder distended and the cystoscope in place, we utilized an 18-gauge spinal needle to enter the bladder about 2 fingerbreadths above the pubic symphysis. Irrigant was aspirated and subsequently, an 11 blade was utilized to make a small incision skin and fascia. A Malecot trocar needle was then placed to enter the bladder, which was a hollow bore and a 0.035 Super Stiff wire was placed to the level of the bladder. Under direct visualization, NephroMax balloon dilator 30-Chadian 12 cm was utilized to dilate the suprapubic tube tract. Subsequently, an 18-Chadian 10 mL SP tube placed without difficulty over a guidewire. 10 mL of sterile water insufflated and the catheter plugged. At this time, we transitioned to the UroLift cystoscope device 21- Chadian using a visual obturator. We placed a total of 3 implants on the left, 3 implants on the right. This created a nice anterior channel, resulting in resolution of the obstructive component. Minimal bleeding was noted. He tolerated the procedure well. He will be monitored in the recovery room for postvoid residual via suprapubic tube. The patient discharged with ciprofloxacin for 3 days, Azo p.r.n. for dysuria. Patient and daughter instructed to monitor his urethra void, check PVR via SP tube minimum every 6 hours. Patient discharged with ciprofloxacin for 3 days Azo. Job ID: [id number] [facility]
== END 2020-02-02 15:20 | disposition home or self-care (01) ==
LOC: SDC 07:35
PROVIDERS: ATTEND Urology
PROC: 0T7D8DZ Dilation of Urethra with Intraluminal Device, Via Natural or Artificial Opening Endoscopic (ICD-10-PCS; principal; 2020-02-02)
DX: N40.1 Benign prostatic hyperplasia with lower urinary tract symptoms (principal); R33.8 Other retention of urine; N39.0 Urinary tract infection, site not specified; E11.40 Type 2 diabetes mellitus with diabetic neuropathy, unspecified; E78.5 Hyperlipidemia, unspecified; I10 Essential (primary) hypertension; I25.10 Atherosclerotic heart disease of native coronary artery without angina pectoris; Z79.82 Long term (current) use of aspirin; Z79.84 Long term (current) use of oral hypoglycemic drugs; Z79.899 Other long term (current) drug therapy; Z87.891 Personal history of nicotine dependence
CPT/HCPCS: C1889; C9740; J0696; J1956; J2250; J2704; J3010; J3490